=== PATIENT | female | born 1975 | race Caucasian/White ===

== ENCOUNTER → 2020-07-20 10:42 | Outpatient (REF) | payer BC, SELFPAY | LOC: ANHLAB 10:42 | PROVIDERS: PCP Family Medicine; Visit Provider Nurse Practitioner | DX: D49.2 Neoplasm of unspecified behavior of bone, soft tissue, and skin (principal) | CPT/HCPCS: 88305 ==

== ENCOUNTER → 2022-04-05 14:03 | Outpatient (CLI) | payer BC, SELFPAY ==
--- NOTE | ~2022-04-05 | MM_ITS ---
EXAMINATION: MM screening [facility] BI w sharon HISTORY: Screening mammogram TECHNIQUE: Craniocaudal and mediolateral oblique 3-D tomosynthesis images were obtained and synthetic 2-D images were generated. CAD analysis was submitted and interpreted. COMPARISON: None, baseline BREAST PARENCHYMAL COMPOSITION: The breasts are heterogeneously dense, which may obscure small masses . FINDINGS: RIGHT BREAST: There are possible obscured masses in the posterior third of the inner breast. LEFT BREAST: There are indeterminate calcifications in the outer breast and possible obscured masses of the inner breast. IMPRESSION: 1. Bilateral breast findings as described above. 2. Additional mammographic views and possible breast ultrasound are recommended. BI-RADS Category 0: Incomplete: Needs additional imaging evaluation. Reviewed, dictated and finalized at location A. IMPRESSION: 1. Bilateral breast findings as described above. 2. Additional mammographic views and possible breast ultrasound are recommended . BI-RADS Category 0: Incomplete: Needs additional imaging evaluation.
== END ==
PROVIDERS: PCP Family Medicine; Visit Provider Nurse Practitioner
DX: Z12.31 Encounter for screening mammogram for malignant neoplasm of breast (principal); R92.8 Other abnormal and inconclusive findings on diagnostic imaging of breast
CPT/HCPCS: 77063; 77067

== ENCOUNTER → 2022-04-19 08:30 | Outpatient (CLI) | payer BC, SELFPAY ==
--- NOTE | ~2022-04-19 | MMUS_ITS ---
EXAMINATION: MM diagnostic [facility] BI w sharon, US breast BI complete HISTORY: Follow-up bilateral breast asymmetries. TECHNIQUE: Additional 3-D tomosynthesis images of the breasts were performed and synthetic 2-D images were generated. CAD analysis was submitted and interpreted. High resolution bilateral complete breas t ultrasound was performed. COMPARISON: 04/05/2022 BREAST PARENCHYMAL COMPOSITION: The breasts are heterogeneously dense, which may obscure small masses FINDINGS: MAMMOGRAPHIC FINDINGS: There are benign bilateral breast calcifications. No architectural distortion. There is a mass in the lower inner quadrant of the left breast which is partially obscured by fibroglandular tissue. ULTRASOUND: Complete bilateral US of all 4 quadrants of the breasts and retroareolar region was reviewed. Right breast: There multiple simple and complicated cysts of the right breast. At 12:00, 5 cm from th e nipple there is a hypoechoic mass measuring 4 mm maximum dimension with antiparallel configuration, no significant posterior features or internal vascularity. This most likely represents a complicated cyst. At 1:00, 5 cm from the nipple there is an oval hypoechoic mass with parallel orientation, subt le posterior acoustic enhancement measuring up to 7 mm. No internal vascularity. This mass is likely benign. At 1:00, 3 cm from the nipple there is an oval parallel hypoechoic mass without posterior fea tures or internal vascularity measuring 7 mm, likely complicated cysts. Left breast: Multiple simple and complicated cyst of the left breast. At 8-9:00, 5 cm from the nipple there is an oval hypoechoic mass measuring 9 x 6 x 10 mm with parallel orientation, no internal vasc ularity. There is mixed posterior attenuation. This mass is likely benign. IMPRESSION: 1. Probable benign bilateral breast masses. 2. Recommend 6 month follow-up Limited bilateral breast ultrasound. BI-RADS category 3, probably benign findings. Reviewed, dictated and finalized at location A. IMPRESSION: 1. Probable benign bilateral breast masses. 2. Recommend 6 month follow-up Limited bilateral breast ultrasound. BI-RADS category 3, probably benign findings.
== END ==
PROVIDERS: PCP Family Medicine; Visit Provider Obstetrics & Gynecology Gynecology
DX: R92.8 Other abnormal and inconclusive findings on diagnostic imaging of breast (principal)
CPT/HCPCS: 76641; 77062; 77066; G0279

== ENCOUNTER → 2022-10-23 08:17 | Outpatient (CLI) | payer BC, SELFPAY ==
--- NOTE | ~2022-10-23 | US_ITS ---
US breast BI limited DATE: 10/23/2022 08:51 INDICATION: Six-month follow-up of bilateral breast masses TECHNIQUE: High-resolution follow-up limited ultrasound imaging and color flow imaging of both breast s COMPARISON: April 19, 2022 bilateral complete breast ultrasound FINDINGS: Right breast: 12:00 5 cm from nipple: 4 mm hypoechoic rounded lesion without internal vascularity or posterior shad owing 1:00 5 cm from nipple: Parallel circumscribed approximately 5 x 7 x 10 mm sonolucency with through tr ansmission posterior enhancement consistent with cyst 1:00 3 cm from nipple: 4.8 mm cyst Left breast: 8/9 o'clock 5 cm from nipple: Parallel circumscribed mildly irregular hypoechoic solid mass with some angular margins, measuring 5 x 8 x 8 mm. There is some posterior shadowing. Ultrasound-guided biopsy is recommended. IMPRESSION: Left breast 8/9 o'clock 5 x 8 x 10 mm mass 5 cm from nipple, with irregular and angular m argins and some posterior shadowing; ultrasound-guided biopsy is recommended BI-RADS Category 4: Suspicious abnormality; biopsy should be considered Dr. Cruz telephoned the report and ultrasound-guided biopsy recommendation on October 23, 2022 at 09 05 hours to TRINITY Hernandez. Reviewed, dictated and finalized at Location A. Reviewed, dictated and finalized at location A. METRIST OWNER IMPRESSION: Left breast 8/9 o'clock 5 x 8 x 10 mm mass 5 cm from nipple, with i rregular and angular margins and some posterior shadowing; ultrasound-guided bi opsy is recommended BI-RADS Category 4: Suspicious abnormality; biopsy should be considered Dr. Cruz telephoned the report and ultrasound-guided biopsy recommendation on 2022 at 0905 hours to TRINITY Hernandez.
== END ==
PROVIDERS: PCP Family Medicine; Visit Provider Obstetrics & Gynecology Gynecology
DX: N63.20 Unspecified lump in the left breast, unspecified quadrant (principal); N63.10 Unspecified lump in the right breast, unspecified quadrant; R92.8 Other abnormal and inconclusive findings on diagnostic imaging of breast
CPT/HCPCS: 76642

== ENCOUNTER 2025-07-16 07:54 | Outpatient (CLI) | payer BC, SELFPAY ==
--- NOTE | ~2025-07-16 | MM_ITS ---
EXAMINATION: screening [facility] BI w sharon INDICATION: Asymptomatic, referred for screening mammogram COMPARISON: 04/19/2022 and 04/05/2022 TECHNIQUE: Digital Breast Tomosynthesis CC, MLO views of Both breasts were obtained with computer-aided detection to assist in interpretation of the study. FINDINGS: The breasts are heterogeneously dense, which may obscure small masses. There is a mass with partially obscured margins in the superior slightly lateral right breast at middle third. Additional mass with partially obscured margins in the inner central at posterior depth within the right breast. Elsewhere, there are no mammographic features of malignancy. IMPRESSION: 1. Right breast masses. 2. No evidence of malignancy in the Left breast. RECOMMENDATION: Right breast Diagnostic mammogram with true lateral, appropriate spot compression views and an ultrasound if needed. BI-RADS Category 0: Incomplete: Needs additional imaging evaluation. Reviewed, dictated and finalized at location B. EKEEPING COORDINATOR IMPRESSION: 1. Right breast masses. 2. No evidence of malignancy in the Left breast. RECOMMENDATION: Right breast Diagnostic mammogram with true lateral, appropriate spot compressi on views and an ultrasound if needed. BI-RADS Category 0: Incomplete: Needs additional imaging evaluation.
--- OUTSIDE RECORDS SUMMARY | 2025-07-16 07:59 | XMS_ITS | Clinical Summary ---
Author Organization [facility] Address [address] [place] [id number] Care Team Providers Care Jboss Architect Name Role Phone Jace Bedolla MD Primary Care Provider [phone] Thais Allison MD Unavailable [phone] Allergies No known active allergies Medications escitalopram (LEXAPRO) 10 mg tablet 3 Active ofloxacin (FLOXIN) 0.3 % otic solution Administer 5 drops into the right ear daily 5 mL 4 Active Active Problems Problem Noted Date Diagnosed Date Abnormal mammogram 11/21/2022 Surgical History Surgery Date Site/Laterality Comments HYSTERECTOMY TONSILLECTOMY UMBILICAL HERNIA REPAIR BREAST BIOPSY 12/05/2022 Left Medical History Medical History Date Comments Overweight Family History Medical History Relation Name Comments Prostate cancer Father Melanoma Maternal Grandfather Melanoma Mother's Sister Melanoma Sister Relation Name Status Comments Father Maternal Grandfather Mother's Sister Sister Social History Tobacco Use Types Packs/Day Years Used Date Smoking Tobacco: Never Smokeless Tobacco: Never Tobacco Cessation:Counseling Given: Not Answered AUDIT-C Answer Date Recorded Q1: How often do you have a drink containing alc ohol? Monthly or less 11/21/2022 Q2: How many drinks containi ng alcohol do you have on a typical day when you are drinking? 1 or 2 11/21/2022 Q3: How often do you have si x or more drinks on one occasion? Less than monthly 11/21/2022 Personal Safety Answer Date Recorded Getting School Help Needed Not on file 09/02 Comments Unknown Sex and Gender Information Value Date Recorded Sex Assigned at Not on file Legal Sex Female 3:31 PM BASKET PERSON Gender Identity Not on file Sexual Orientation Not on file Last Filed Vital Signs Vital Sign Reading Time Taken Comments Blood Pressure 126/82 10/08/2023 5:04 PM BASKET PERSON Pulse 75 10/08/2023 5:04 PM BASKET PERSON Temperature 36.7 C (98.1 F) 10/08/2023 5:04 PM BASKET PERSON Respiratory Rate 18 10/08/2023 5:04 PM BASKET PERSON Oxygen Saturation 99% 10/08/2023 5:04 PM BASKET PERSON Inhaled Oxygen Concentration - - Weight 84 kg (185 lb 3.2 oz) 10/08/2023 5:04 PM BASKET PERSON Height 160 cm (5' 2.99) 10/08/2023 5:04 PM BASKET PERSON Body Mass Index 32.82 10/08/2023 5:04 PM BASKET PERSON Plan of Treatment Health Maintenance Due Date Last Done Comments Breast Cancer Screening-Mammogram 1977 Colon Cancer Screening-Colonoscopy 1977 Depression Screening 1977 Hepatitis C Screening 1977 DTaP/Tdap/Td Vaccine (1 - Tdap) 1988 Hepatitis B Screening 1995 Regular Well Visit/Exam 18-64 1995 Covid-19 Vaccine (3 - 2024-2 6 season) 2025 01/21/2021, 12/31/2020 Influenza Vaccine (#1) 2025 Pneumococcal vaccine <65 Aged Out No longer eligible based on patient's age to complete this topic Medical Devices Implanted Type Area Major Donor Coordinator Device Identifier Shelf Expiration Date Model / Serial / Lot Bard Peripheral Vascular Ultraclip Bard 17ga 10cm 2 Trigger Permanent Ultrasound [id number] - [id number] Implanted:Qty: 1 on 12/05/2022 at [facility] Left: Breast [employer] [id number] / / Insurance [employer] [place] Member Subscriber Plan / Payer (Ef fective 2022-Present) Name:Shantel Vogel Relation to Subscriber:Self Name:Shantel Vogel Bev Payer ID:[id number] (NAIC) Type:Liquid X Address: [address] [place] Care Teams Jboss Architect Relationship Specialty [place] Date End Date Jace Bedolla MD PCP - General Family Medicine 10/23/22 Thais Allison MD [address]22 [address] [place] [id number] Referring Physician Gynecology 10/23/22
--- OUTSIDE RECORDS SUMMARY | 2025-07-16 08:00 | XMS_ITS | Clinical Summary ---
Author Organization [facility] Address [address] [place] [address] Care Team Providers Care Armature Varnisher Name Role Phone Jace Bedolla MD Primary Care Provider [phone] Allergies No known active allergies Medications docusate sodium 100 MG capsule Take 100 mg by mouth 2 (two) times daily. Active Active Problems No known active problems Family History Medical History Relation Comments Cancer Father Heart Disease Mother Relation Status Comments Father Alive Mother Alive Social History Tobacco Use Types Packs/Day Years Used Date Smoking Tobacco: Never Smokeless Tobacco: Never Alcohol Use Standard Drinks/Week Comments Yes 8.3 (1 standard drink = 0.6 oz p ure alcohol) Comments No Sex and Gender Information Value Date Recorded Sex Assigned at Not on file Legal Sex Female 10:03 AM CDT Gender Identity Not on file Sexual Orientation Not on file Last Filed Vital Signs Vital Sign Reading Time Taken Comments Blood Pressure 132/84 06/09/2021 9:40 AM CDT Pulse 78 06/09/2021 9:40 AM CDT Temperature 36.3 C (97.4 F) 06/09/2021 9:23 AM CDT Respiratory Rate 18 06/09/2021 9:40 AM CDT Oxygen Saturation 100% 06/09/2021 9:40 AM CDT Inhaled Oxygen Concentration - - Weight 74.8 kg (165 lb) 06/08/2021 12:52 PM CDT Height 160 cm (5' 3) 06/08/2021 12:52 PM CDT Body Mass Index 29.23 06/08/2021 12:52 PM CDT Plan of Treatment Health Maintenance Due Date Last Done Comments Annual Physical 1980 Hepatitis C 1995 DTaP, Tdap and Td Vaccines ( 1 - Tdap) 1996 Hepatitis B Vaccines (1 of 3 - 19+ 3-dose series) 1996 Mammogram Screening 2017 COVID-19 Vaccine (3 - 2024-2 6 season) 2025 01/21/2021, 12/31/2020 Influenza Adult (#1) 2025 Colorectal Cancer Screening Colonoscopy (10 Years) 06/09/2031 06/09/2021, 06/09/2021 Hepatitis A Vaccines Aged Out No long er eligible based on patient's age to complete this topic Meningococcal B Vaccine Aged Out No l onger eligible based on patient's age to complete this topic Meningococcal Vaccine Aged Out No mc khanh eligible based on patient's age to complete this topic Pneumococcal Vaccine: Pediatrics (0 to 5 Years) and At-Risk Patients (6 to 49 Years) Aged Out No longer eligible b ased on patient's age to complete this topic RSV Immunizations Under 20 Months Aged Out No longer eligible b ased on patient's age to complete this topic Procedures Procedure Name Priority Date/Time Associated Diagnosis Comments COLONOSCOPY Routine 06/09/2021 7:46 AM CDT from Last 3 Months or Most Recently Relevant to Health Maintenance Insurance [facility] Care Teams Armature Varnisher Relationship Specialty [place] Date End Date Jace Bedolla MD [address] [address] PCP - General FAMILY PRACTICE 06/09/21
--- OUTSIDE RECORDS SUMMARY | 2025-07-16 08:00 | XMS_ITS | Clinical Summary ---
Author Organization [facility] Address [address] [place] [address] Care Team Providers Care Utility Tender Carding Name Role Phone Jeovany Duggan Primary Care Provider Source Comments [facility],non-owned Affiliates and Associated Physician Practices is amultiple site organization consisting of ambulatory clinics and hospital sitesin [place], [place] and [place]. This disclosure is being madepursuant to the Care Everywhere program and may not contain all information available regarding this patient. Last updated [email or web address].[email or web address] [email or web address] Social History Tobacco Use Types Packs/Day Years Used Date Smoking Tobacco: Never Assessed Comments Unknown Sex and Gender Information Value Date Recorded Sex Assigned at Not on file Legal Sex Female 8:54 AM CDT Gender Identity Not on file Sexual Orientation Not on file Plan of Treatment Health Maintenance Due Date Last Done Comments COLOGUARD (AGES 45-75) - COL ON CA SCREENING 1977 COLON MONITORING 1977 COLONOSCOPY - COLON CA SCREENING 1977 CT COLONOGRAPHY - COLON CA SCREENING 1977 Colorectal Cancer Screening 1977 FIT - COLON CA SCREENING 1977 FLEX SIG - COLON CA SCREENING 1977 LIPID TESTING 1977 MAMMOGRAM 1977 HIV SCREENING 1992 HEPATITIS C SCREENING 05/13/1995 DTAP/TDAP/TD VACCINES (1 - Tdap) 1996 HEPATITIS B VACCINE (1 of 3 - 19+ 3-dose series) 1996 Cervical Cancer Screening 1998 PAP SMEAR 1998 PAP with HPV 2007 DEPRESSION SCREENING 08/27/2024 COVID-19 VACCINE (2024-2 6 season) 2025 INFLUENZA VACCINE (#1) 2025 ZOSTER VACCINE (1 of 2) 2027 HIB VACCINE Aged Out No longer eligi ble based on patient's age to complete this topic HPV VACCINE Aged Out No longer eligi ble based on patient's age to complete this topic MENINGOCOCCAL (Group B) VACC INE SHARED DECISION-MAKING Aged Out No longer eligibl e based on patient's age to complete this topic MENINGOCOCCAL GROUPS A/C/Y/W VACCINE Aged Out No longer eligible b ased on patient's age to complete this topic PNEUMOCOCCAL VACCINE Aged Out No long er eligible based on patient's age to complete this topic Insurance ANTHEM Care Teams Utility Tender Carding Relationship Specialty Start Date End Date Jeovany Duggan DO [address] [place], [place] [id number] PCP - General 01/09/18
== END 2025-07-16 07:55 | disposition home or self-care (01) ==
LOC: ANHFOHIMG 07:56
PROVIDERS: PCP Family Medicine; Visit Provider Obstetrics & Gynecology Gynecology
DX: Z12.31 Encounter for screening mammogram for malignant neoplasm of breast (principal); R92.8 Other abnormal and inconclusive findings on diagnostic imaging of breast
CPT/HCPCS: 77063; 77067